=== PATIENT | male | born 1975 | race Caucasian/White ===

== ENCOUNTER 2018-09-24 15:11 | Emergency (ER) | payer BC ==
[2018-09-24] MEDS ORDERED: ONDANSETRON INJ 8 MG in DEXTROSE 5% 50 ML IV (16:23)
[2018-09-24] MEDS: morphine 4 MG/ML VIAL IV (16:42)
[2018-09-24] MEDS: SOD CHLORIDE 0.9% 500 ML IV (16:42)
[2018-09-24] MEDS: KETOROLAC 30 MG INJ IV (16:42)
[2018-09-24] MEDS: ONDANSETRON 4 MG INJ IV (16:47)
== END 2018-09-24 17:52 | disposition home or self-care (01) ==
LOC: FTE 15:11
DX: M54.5 Low back pain (principal)
CPT/HCPCS: 72131; 96361; 96374; 96375; 99285-25